=== PATIENT | male | born 1955 | race Caucasian/White ===

== ENCOUNTER 2016-11-24 19:44 | Emergency (ER) | payer MEDICARE ==
[2016-07-31 22:07] VITALS: BMI 28.9
[~2016-11-24 19:44] MED LIST: ALBUTEROL0.63 MG/3 UPD; ASPIRIN325 MG PO; CELEXA10 MG PO; COREG25 MG PO; COREG6.25 MG PO; FLOMAX0.4 MG PO; GEMFIBROZIL600 MG PO; GLUCOPHAGE1000 MG PO; HYDROCHLOROTHIA25 MG PO; ISOSORBIDE DINI30 MG PO; ISOSORBIDE MONO30 M1 PO; LANOXIN250 MCG PO; LORTAB 7.5/5001 TA1 PO; MIRAPEX0.5 MG PO; NEURONTIN 300300 MG PO; NITROSTAT0.4 MG SL; NORCO 7.5/325 T1 TA1 PO; NOVOLIN N100 U/ML SQ; OMEPRAZOLE20 M1 PO; PLAVIX75 MG PO; PRILOSEC20 MG PO; RANEXA500 MG PO; REGLAN10 MG PO; SOMA350 MG PO; VASOTEC10 MG PO; XANAX0.5 MG PO; ZANTAC150 MG PO
[2016-11-24 20:32] LABS: BASOPHILS 0.4 % (0.0-2.0); EOSINOPHILS 3.7 % (0-7); HEMATOCRIT 34.7 % (42.0-54.0); HEMOGLOBIN 11.2 g/dL (13.5-17.5); IMMATURE GRANULOCYTES 0.5 % (0-5); MCH 23.9 pg (26.0-34.0); MCHC 32.3 g/dL (31.0-37.0); MEAN PLATELET VOLUME 10.2 fL (7.4-10.4); NEUTROPHILS 66.4 % (40-80); RBC 4.69 10x6/uL (4.20-6.10); RDW 15.8 % (11.5-14.5); WBC 11.5 10x3/uL (4.8-10.8)
[2016-11-24 20:34] LABS: PLATELET COUNT 179 10x3/uL (130-400)
[2016-11-24 21:03] LABS: ALBUMIN 3.4 g/dL (3.4-5.0); ALKALINE PHOSPHATASE 74 U/L (46-116); ALT (SGPT) 14 U/L (10-68); BILIRUBIN - TOTAL 0.34 mg/dL (0.2-1.3); CALC OSMOLALITY 269 mosm/kg (275-300); CALCIUM 9.7 mg/dL (8.5-10.1); CARBON DIOXIDE 28.3 mmol/L (21.0-32.0); CHLORIDE - SERUM 92 mmol/L (98-107); CREATININE - SERUM 1.6 mg/dL (0.6-1.3); POTASSIUM - SERUM 5.1 mmol/L (3.5-5.1); PROTEIN - SERUM 7.6 g/dL (6.4-8.2); SODIUM 128 mmol/L (136-145); UREA NITROGEN 37 mg/dL (7-18); eGFR NON AFRICAN AMERICAN 47 mL/min (90-120)
[2016-11-24 21:05] LABS: GLUCOSE 179 mg/dL (74-106)
[2016-11-24 21:13] LABS: CHOL - HDL RATIO 2.9 ratio (2.3-4.9); CHOLESTEROL, TOTAL 121 mg/dL (0-200); CKMB 6.3 U/L (0.0-3.6); CREATINE KINASE 256 UL (21-232); HDL CHOLESTEROL 42 mg/dL (32-96); LDL CHOLESTEROL 62 mg/dL (0-100); LDL-HDL RATIO 1.5 ratio (1.5-3.5); PRO BNP 601 pg/mL (0-125); TRIGLYCERIDE 89 mg/dL (30-200); TROPONIN-I 0.043 ng/mL (0.000-0.060)
== END 2016-11-24 23:08 | disposition home or self-care (01) ==
LOC: D.ER 19:44
PROVIDERS: Emergency Medicine
DX: J20.9 Acute bronchitis, unspecified (principal); K21.9 Gastro-esophageal reflux disease without esophagitis; I10 Essential (primary) hypertension; E11.9 Type 2 diabetes mellitus without complications; Z95.5 Presence of coronary angioplasty implant and graft; F17.200 Nicotine dependence, unspecified, uncomplicated

== ENCOUNTER 2016-12-20 13:35 | Outpatient (CLI) | payer MEDICARE ==
[~2016-12-20] VITALS: Ht 180.3 cm; Wt 88.6 kg
[2016-12-20 14:52] VITALS: BP 110/58; Ht 180.3 cm; Wt 88.6 kg
[2016-12-20 14:53] LABS: BASOPHILS 0.3 % (0.0-2.0); EOSINOPHILS 1.8 % (0-7); HEMATOCRIT 35.3 % (42.0-54.0); HEMOGLOBIN 11.3 g/dL (13.5-17.5); IMMATURE GRANULOCYTES 0.6 % (0-5); LYMPHOCYTES 16.3 % (15-50); MCH 23.9 pg (26.0-34.0); MCV 74.8 fL (80.0-100.0); MEAN PLATELET VOLUME 10.7 fL (7.4-10.4); MONOCYTES 7.9 % (2-11); NEUTROPHILS 73.1 % (40-80); PLATELET COUNT 193 10x3/uL (130-400); RBC 4.72 10x6/uL (4.20-6.10); RDW 17.3 % (11.5-14.5); WBC 8.7 10x3/uL (4.8-10.8)
[2016-12-20 14:57] LABS: ANION GAP 15.5 mmol/L (8-16); CARBON DIOXIDE 25.7 mmol/L (21.0-32.0); CREATININE - SERUM 2.1 mg/dL (0.6-1.3); POTASSIUM - SERUM 5.2 mmol/L (3.5-5.1)
[2016-12-20] MEDS ORDERED: MUCINEX1200 MG/BO PO (14:57)
--- NOTE | 2016-12-20 15:00 | NUR ---
1410-TAKEN TO RADIOLOGY FOR CHEST X-RAY, LAB OBTAINED AT THIS TIME. 1435-22G IV STARTED TO RIGHT DORSTAL HAND TIMES ONE ATTEMPT, NORMAL SALINE PLACED ON PUMP @ 200CC PER HR.
[2016-12-20] MEDS ORDERED: TOUJEO SOL300 UNIT/1 SC (15:04)
--- NOTE | 2016-12-20 16:15 | NUR ---
CALL PLACED TO DR MIGUEL, REPORTED BMP RESULTS, DR MIGUEL STATES TO HAVE PATIENT INCREASE TOUJEO TONIGHT TO 35 TO [address] CALL [address] GARCIA'S NURSE BONIFACIO WITH BLOOD SUGAR READINGS TMRW
--- NOTE | 2016-12-20 17:30 | NUR ---
PATIENT'S DAUGHTER ASKS IF PATIENT MAY GO OVER TO THE MEDICAL FLOOR TO VISIT HIS BROTHER WHO IS AN INPATIENT AND IS NOT DOING WELL. PATIENT TRANSPORTED BY WHEELCHAIR BY DAUGHTER TO ROOM 2223 TO VISIT PATIENT'S BROTHER. PATIENT AWAKE, ALERT, WITHOUT COMPLAINTS
--- NOTE | 2016-12-20 18:10 | NUR ---
PATIENT RETURNS TO ROOM BY WHEELCHAIR, TRANSFERS TO BED, RIGHT HAND PIV CONTINUES TO INFUSE NS
--- NOTE | 2016-12-20 19:05 | NUR ---
PATIENT REQUESTS TO GO HOME DUE TO BP 139/81, DESPITE ABOUT 75 CC REMAINING IN LITER OF NS TO BE INFUSED. ORDER STATES THAT PATIENT MAY BE DISCHARGED IF BP OVER 100 SYSTOLIC. RIGHT HAND PIV DC'D WITH TIP INTACT. DC INSTRUCTIONS GIVEN, INCLUDING INSTRUCTIONS TO TAKE 35 TO 40 CC TOUJEO TONIGHT INSTEAD OF USUAL 30 UNITS AND CALL WITH BLOOD SUGAR READINGS TOMORROW TO DR GARCIA'S NURSE. PATIENT AND DAUGHTER STATE UNDERSTANDING. DISCHARGED HOME VIA WHEELCHAIR TO PRIVATE VEHICLE WITH DAUGHTER AND GRANDDAUGHTER
== END 2016-12-20 19:05 | disposition home or self-care (01) ==
LOC: D.OPS 13:35
PROVIDERS: Family Medicine
DX: I95.9 Hypotension, unspecified (principal); R06.02 Shortness of breath

== ENCOUNTER 2017-04-10 12:59 | Inpatient (IN) | payer MEDICARE ==
[~2017-04-10] VITALS: Ht 180.3 cm; Wt 88.5 kg
[~2017-04-10 12:59] MED LIST changes: -ASPIRIN325 MG PO; +ASPIRIN81 MG PO; +MUCINEX1200 MG/BO PO; +TOUJEO SOL300 UNIT/1 SC
[2017-04-10 13:38] LABS: BASOPHILS 0.2 % (0-2); EOSINOPHILS 0.2 % (0-7); HEMATOCRIT 31.5 % (42.0-54.0); IMMATURE GRANULOCYTES 0.4 % (0-5); LYMPHOCYTES 12.2 % (15-50); MCH 23.6 pg (26.0-34.0); MCHC 31.7 g/dL (31.0-37.0); MCV 74.5 fL (80.0-100.0); MEAN PLATELET VOLUME 9.5 fL (7.4-10.4); MONOCYTES 8.4 % (2-11); NEUTROPHILS 78.6 % (40-80); RBC 4.23 10x6/uL (4.20-6.10)
[2017-04-10 13:53] LABS: UDS - AMPHET NEGATIVE QUAL (NEGATIVE); UDS - BARB NEGATIVE QUAL (NEGATIVE); UDS - BENZO POSITIVE QUAL (NEGATIVE); UDS - COCAINE NEGATIVE QUAL (NEGATIVE); UDS - METH NEGATIVE QUAL (NEGATIVE); UDS - OPIATE POSITIVE QUAL (NEGATIVE); UDS - PCP NEGATIVE QUAL (NEGATIVE); UDS - THC NEGATIVE QUAL (NEGATIVE)
[2017-04-10 13:57] LABS: APPEARANCE HAZY (CLEAR); BILIRUBIN NEGATIVE (NEGATIVE); COLOR YELLOW (YELLOW); GLUCOSE 500 mg/dL (NEGATIVE); KETONE NEGATIVE (NEGATIVE); LEUKOCYTE ESTERASE NEGATIVE (NEGATIVE); NITRITE NEGATIVE (NEGATIVE); PROTEIN 3+ mg/dL (NEGATIVE); SPECIFIC GRAVITY 1.015 (1.005-1.020); UROBILINOGEN NORMAL (NORMAL)
[2017-04-10 13:58] LABS: AMORPHOUS SEDIMENT <1+ /lpf (NONE SEEN); BACTERIA MODERATE /hpf (NONE SEEN); EPITHELIAL CELLS 0-5 /hpf (0-5); GRANULAR CAST OCC /lpf (NONE SEEN); MUCUS <1+ /lpf (NONE SEEN); WHITE CELLS - URINE RARE /hpf (0-5)
[2017-04-10 14:01] LABS: PLATELET COUNT 355 10x3/uL (130-400)
[2017-04-10 14:04] LABS: ALBUMIN 2.4 g/dL (3.4-5.0); ANION GAP 15.2 mmol/L (8-16); BILIRUBIN - TOTAL 0.41 mg/dL (0.2-1.3); CALCIUM 8.9 mg/dL (8.5-10.1); CARBON DIOXIDE 25.8 mmol/L (21.0-32.0); CREATININE - SERUM 2.1 mg/dL (0.6-1.3); PROTEIN - SERUM 6.6 g/dL (6.4-8.2)
[2017-04-10 14:17] LABS: PRO BNP 2771 pg/mL (0-125); TROPONIN-I < 0.017 ng/mL (0.000-0.060)
--- NOTE | 2017-04-10 15:53 | NUR ---
ARRIVE TO ROOM VIA WHEELCHAIR ACCOMPANIED BY NEUROPSYCHOLOGY DIRECTOR AND FAMILY. ALERT AND ORIENTED X4. COMPLAINS OF SOB. O2 AT 2L NC. REPORTS GENERALIZED WEAKNESS. URINAL AT BEDSIDE. INITIATE TELEMETRY MONITORING. IV LT UPPER ARM. INITIATE IV FLUIDS ORDERED. SCDs ON. BED LOCKED AND LOW. CALL LIGHT IN REACH. TWO SIDERAILS UP.
[2017-04-10] MEDS ORDERED: GLUCOTROL ER2.5 MG PO (16:05)
[2017-04-10] MEDS ORDERED: AMITRIPTYLINE H50 MG PO (16:06)
[2017-04-10 16:51] VITALS: BP 95/54; BMI 27.3
[2017-04-10 20:00] VITALS: BP 136/369
--- NOTE | 2017-04-10 20:38 | NUR ---
PT WITH MULTIPLE FAMILY IN ROOM. FAMILY REQUESTING HIS PAIN MED/MUSCLE RELAXER AND SOMETHING FOR HIS BEING A SMOKER. MEDICATED WITH NORCO 7.5MG/SOMA 350MG AND APPLIED A TRANSDERMAL NICOTINE 21MG PATCH TO PATIENTS. RIGHT UPPER BACK.
--- NOTE | 2017-04-10 21:24 | NUR ---
DECREASED IVF TO 30ML/HR PER NEW ORDER OF DR GARCIA.
[2017-04-11] VITALS: BP 101/56
--- NOTE | 2017-04-11 01:28 | NUR ---
SPOKE WITH LAB, URINE WAS COLLECTED IN ER SO THEY CAN RUN CULTURE OFF OF THAT SPECIMEN.
--- NOTE | 2017-04-11 03:22 | NUR ---
PT RESTING IN BED WITH NO DISTRESS. DAUGHTER AT BEDSIDE. IVF INFUSING. CPOC. CALL LIGHT IN REACH.
[2017-04-11 04:00] VITALS: BP 117/68
[2017-04-11 05:44] LABS: BASOPHILS 0.3 % (0-2); EOSINOPHILS 0.4 % (0-7); HEMATOCRIT 28.9 % (42.0-54.0); IMMATURE GRANULOCYTES 0.4 % (0-5); LYMPHOCYTES 15.5 % (15-50); MCHC 31.1 g/dL (31.0-37.0); MCV 73.9 fL (80.0-100.0); MEAN PLATELET VOLUME 9.7 fL (7.4-10.4); MONOCYTES 11.7 % (2-11); NEUTROPHILS 71.7 % (40-80); PLATELET COUNT 363 10x3/uL (130-400); RBC 3.91 10x6/uL (4.20-6.10); RDW 15.9 % (11.5-14.5); WBC 9.4 10x3/uL (4.8-10.8)
[2017-04-11 06:00] LABS: ANION GAP 15.5 mmol/L (8-16); CALCIUM 9.2 mg/dL (8.5-10.1); CARBON DIOXIDE 25.8 mmol/L (21.0-32.0); CREATININE - SERUM 2.2 mg/dL (0.6-1.3); POTASSIUM - SERUM 4.3 mmol/L (3.5-5.1)
[2017-04-11 08:13] VITALS: BP 140/69
[2017-04-11 08:36] VITALS: Ht 180.3 cm; Wt 88.5 kg
--- NOTE | 2017-04-11 13:41 | NUR ---
ALERT AND ORIENTED WITH OCCASIONAL CONFUSION. FAMILY AT BEDSIDE. WAITING FOR ECHO. ASKING ABOUT A BRAIN SCAN. INFORM FAMILY NO ORDER HAS BEEN PLACED FOR BRAIN SCAN. COMPLAINS OF LT SHOULDER PAIN. APPLY WARM BLANKET TO SHOULDER. INITIATE PAIN MANAGEMENT ORDERED. SINUS RHTHYM 90bpm ON TELEMETRY. CONTINUE PLAN OF CARE. BED LOCKED AND LOW. CALL LIGHT IN REACH. TWO SIDERAILS UP.
[2017-04-11 19:45] VITALS: BP 112/61
--- NOTE | 2017-04-11 20:53 | NUR ---
HS MEDS GIVEN WITH FRESH ICE WATER. BS 281, COVERED PER S/S. PT DENIES PAIN OR NEEDS, FAMILY AT BED SIDE, BED LOW, CL IN REACH.
--- NOTE | 2017-04-12 01:05 | NUR ---
NORCO 1 TAB GIVEN FOR C/O PAIN, DAUGHTER AT BED SIDE.
[2017-04-12 01:51] VITALS: BP 136/78
--- NOTE | 2017-04-12 03:18 | NUR ---
RESTING WITH EYES CLOSED, RESPERATIONS EVEN, NO S/S DISTRESS NOTED.
[2017-04-12 05:48] VITALS: BP 118/58
[2017-04-12 08:19] VITALS: BP 140/59
--- NOTE | 2017-04-12 08:35 | HP ---
PATIENT: RIKI FRANCIS MEDICAL RECORD: [id number] ACCOUNT: [id number] LOCATION:[facility].2113 : 53 ADMISSION DATE: 04/10/17 HISTORY AND PHYSICAL EXAMINATION REASON FOR ADMISSION: Shortness of breath and confusion. HISTORY OF PRESENT ILLNESS: The patient is a 61-year-old male with history of ischemic cardiomyopathy with last EF at this hospital in July 2016 of 15% to 20% with global hypokinesis. The patient has been seen by Dr. Quintero at [facility]. He had recently begun taking Neurontin for diabetic neuropathy. His daughter states that he has been tired having intermittent cough for some time. His cough has been productive of only whitish sputum, nothing out of color. He has not had fever. His daughter states he became more confused the last 48 hours and then went to the Emergency Room for that reason. He has also had mild short of breath on exertion, but no chest pain. In the ED, his sat was 94% on room air. He is able to answer questions. Dr. Burton evaluated the patient and notes the sodium was low at 125 and creatinine was up to 2.1. Chest x-ray showed mild interstitial edema. He is admitted for these reasons. PAST MEDICAL HISTORY: Ischemic cardiomyopathy with AED placed. He states it has never fired. History of remote myocardial infarction, chronic angina, gastric ulcer, blood transfusion in 1991, diabetes mellitus, chronic lumbago, lumbar disc disease with lumbar discectomy, chronic pain syndrome, hyperlipidemia, hypertension and chronic renal insufficiency. PAST SURGICAL HISTORY: Carpal tunnel release, bilateral cataract surgery in 1999, 7 lumbar back procedures, AED 2013, multiple angiograms, has had peripheral vascular disease with stents in both legs, multiple coronary stents. FAMILY HISTORY: Father at 69 from CAD and kidney failure. Mother at 58, CAD and heart issues. All of his brothers and sisters have had a premature heart disease. SOCIAL HISTORY: He is about 2 years ago. His of diabetic ____ kidney disease. He continues to smoke, unfortunately a half a pack to a pack of cigarettes a day. HOME MEDICATIONS: Plavix 75 mg a day, enteric-coated aspirin 325 mg a day. Vasotec 10 mg b.i.d., digoxin 0.25 mg daily, Coreg 25 mg q.12 hours, Reglan 10 mg b.i.d., Xanax 0.5 mg t.i.d. p.r.n. anxiety, metformin 1000 mg b.i.d., glipizide 5 mg daily, omeprazole 20 mg a day, Bonaparte 7.5/325 one q. 6 p.r.n. pain, potassium chloride 10 mEq b.i.d., Mirapex 1 mg b.i.d., Lasix 20 mg one-half tab b.i.d., Toujeo 35 units subQ daily, gabapentin 300 mg t.i.d., gemfibrozil 600 mg b.i.d., Isordil 60 mg b.i.d., Soma 350 mg q. 6 hours p.r.n. muscle spasm, Elavil 50 mg at h.s. p.r.n. sleep, sliding scale insulin, insulin sensitive, regular. ALLERGIES: None. REVIEW OF SYSTEMS: GENERAL: Chronically fatigue. He has had weight loss over the last year since his , but has stabilized. Denies fever. HEENT: No recent visual change, sinus congestion, or sore throat. Some hearing HISTORY AND PHYSICAL [id number] RIKI FRANCIS difficulty. RESPIRATORY: Mild shortness of breath on exertion. He has had a dry cough for several months. Occasionally, he will produce some whitish phlegm. Denies hemoptysis. He continues to smoke. CARDIAC: No exertional chest pain, mild DOAN. No increasing peripheral edema. No recent chest pain. GENITOURINARY: Nocturia nightly. No dysuria. MUSCULOSKELETAL: Has chronic cervical and lumbar back pain that requires chronic pain medications. He denies sciatica, currently. ENDOCRINE: Denies polyuria, polydipsia, heat or cold intolerance. NEUROLOGIC: No history of stroke, TIA, vascular headaches or seizures. PSYCHIATRIC: Admits to chronically depressed mood since his 's . He has trouble with insomnia, improved on Elavil. PHYSICAL EXAMINATION: VITAL SIGNS: Temperature is 98.2 Fahrenheit orally, pulse 86 and regular, respirations were 20 and nonlabored, blood pressure was 114/52 with a sat of 94% on room air. GENERAL: The patient is alert and oriented at this time. He is not confused. HEENT: Eyes are clear. Oropharynx unremarkable except for poor dentition. NECK: No bruits, JVD or masses. CHEST: He has fine crackles in the bases bilaterally. HEART: Regular rate with a faint I/ systolic ejection murmur. ABDOMEN: Soft. GENITOURINARY: Deferred. EXTREMITIES: No CC&E. SKIN: Does show a hypertrophied callus on his left medial proximal MTP joint. IMAGING: Chest x-ray shows mild pulmonary edema. Cardiac pacing device in place in the right atrium and right ventricle, leads are noted. Cardiac silhouette is not enlarged. LABORATORY DATA: His white count is 10,000, H&H is 10 and 31.5 respectively, platelet count is 355,000. ABG on room air showed a pH of 7.44, CO2 of 33, pO2 of 57. Sodium is 125, potassium is 5, BUN and creatinine is 54 and 2.1 reflecting his chronic renal insufficiency. Cardiac enzymes are negative. ProBNP is 2771. Urine drug screen is positive for opiates and benzodiazepines, which are prescribed medications for him. Digoxin level is low at 0.07. UA 3+ protein, 2+ blood, 5-10 red cells. ASSESSMENT: 1. [id number]-[id number] systolic congestive heart failure. 2. Congestive cardiomyopathy. 3. Hyponatremia, possibly diuretic induced. 4. Proteinuria. 5. Hematuria. 6. Chronic renal insufficiency. 7. Diabetes mellitus. 8. Chronic pain syndrome. 9. Diabetic neuropathy, depression, nicotine dependence, chronic obstructive pulmonary disease, significant coronary artery disease with multiple stent procedures, peripheral vascular disease with multiple stent procedures. PLAN: The patient will be admitted on fluid restriction. His creatinine appears at baseline. We will discontinue IV fluid ordered in the ED and proceed HISTORY AND PHYSICAL [id number] RIKI FRANCIS with gentle diuresis, pending his sodium response. We will obtain echocardiogram to assess his current ejection fraction, have cardiology consult, Dr. Conway. TRANSINT:[id number] Voice Confirmation ID: [id number] DOCUMENT ID: [id number] GOPI GARCIA MD at 0835 CC: [id number] DICTATION DATE: 04/10/17 183 BEAD TRIMMER: 04/10/17 2343 ADM IN [address] [id number] [place] [address]
[2017-04-12 10:14] LABS: ANION GAP 13.5 mmol/L (8-16); CALCIUM 8.8 mg/dL (8.5-10.1); CARBON DIOXIDE 25.5 mmol/L (21.0-32.0)
[2017-04-12 11:52] VITALS: BP 124/59
--- NOTE | 2017-04-12 13:23 | NUR ---
ALERT AND ORIENTED X4. RESTING IN BED. FAMILY AT BEDSIDE. TEARFUL DUE TO RECIEVING BAD NEWS FROM DOCTOR PER ARIA FRANCIS (PATIENT'S DAUGHTER). TALKING IN ROOM ABOUT HOSPICE CARE WHEN DISCHARGED. DENIES ANY NEEDS. CALLS FOR ASSISTANCE IF NEEDED. BED LOCKED AND LOW. CALL LIGHT IN REACH. TWO SIDERAILS UP. SINUS RHTHYM 85bpm ON TELEMETRY.
--- NOTE | 2017-04-12 13:39 | CN ---
PATIENT NAME:RIKI FRANCIS MEDICAL RECORD: [id number] : 51 LOCATION:D. D.2113 ADMIT DATE: 04/10/17 ACCOUNT: [id number] CONSULTING PHYSICIAN: SHIRLEY HERNÁNDEZ MD REFERRING PHYSICIAN: GOPI GARCIA MD DATE OF CONSULTATION: 04/11/2017 HISTORY OF PRESENT ILLNESS: A 61-year-old gentleman with longstanding history of coronary artery disease, most recently with intervention in November of this year. He has severe diffuse disease that was most not amenable to intervention. He has severe ischemic cardiomyopathy, EF 15% to 20% post-ICD placement. Really more of a general downward course. Daughter reports confusion has been worse as of late ____ his is not here. He was found to be hyponatremic. We are asked to see him concerning his cardiovascular status. PAST MEDICAL HISTORY: Includes: 1. A history of coronary artery disease, status post intervention. 2. Chronic renal insufficiency. 3. Diabetes mellitus. 4. Dyslipidemia. 5. Depression. 6. Anxiety. MEDICATIONS: Typically include Soma 700 mg p.o. q.i.d. p.r.n., Plavix 75 every day, Lopid 600 b.i.d., Imdur 60 every day, Enalapril 10 b.i.d., carvedilol 25 b.i.d., aspirin 81 every day, Celexa 20 every day, [place] 7.5/325 one q.6 hours p.r.n., Neurontin 300 mg t.i.d., amitriptyline 50 q.h.s., HCTZ 25 every day, Reglan 10 b.i.d., Zantac 150 h.s., glipizide 2.5 every day, insulin 30 units daily. SOCIAL HISTORY: Currently, lives by himself. He does have good family support with his daughter. He has no set exercise program. REVIEW OF SYSTEMS: The patient reports easy bruising but reports no swollen glands. The patient reports no fever, no night sweats, no significant weight gain, no significant weight loss. No significant exercise tolerance. The patient reports no dry eyes, no irritation, no vision change. Patient reports no difficulty hearing and no ear pain. Patient reports no frequent nose bleeds or nose and sinus problems. Patient reports on arm pain on exertion. No shortness of breath while lying down. No history of heart murmur. Patient reports no cough, no wheezing or coughing up blood. Patient reports no abdominal pain, no vomiting. Normal appetite. No diarrhea and not vomiting blood. No nausea and no constipation. Patient reports no incontinence. No difficulty urinating. No hematuria. No increased frequency. Patient reports no muscle aches. No weakness, no arthralgias, no back pain. No swelling of the extremities. Patient reports no abnormal mole, no jaundice, no rashes. Reports no loss of consciousness. No weakness and no numbness. No seizures, dizziness, or headaches. The patient reports no depression, no sleep disturbance, feeling safe in a relationship and no alcohol abuse. Patient reports on fatigue. Reports no runny nose or sinus pressure. No itching, no hives, and no frequent sneezing. PHYSICAL EXAMINATION: GENERAL: Pleasant gentleman, does recognize me, recounts he is in the hospital. VITAL SIGNS: Blood pressure 140/69, pulse 93 and regular. CONSULT REPORT [id number] RIKI FRANCIS HEENT: Normocephalic, atraumatic. NECK: No bruits noted. HEART: Regular, II/ systolic ejection murmur, probable summation gallop. LUNGS: Decreased air excursion. ABDOMEN: Soft, nontender. EXTREMITIES: Pulses are decreased 1+. No edema is noted. IMPRESSION: Worsening confusion, hyponatremia. Confusion may at this point be multifactorial given age and other multiple risk factors. Discussed this in detail with his daughter. Correct electrolytes as possible. Further recommendations based on clinical course. Though I think at this point mental status may be on slow ____. TRANSINT:[id number] Voice Confirmation ID: [id number] DOCUMENT ID: [id number] SHIRLEY HERNÁNDEZ MD at 1339 CC: [id number] DICTATION DATE: 04/11/17930 REMEDIATION TECHNICIAN: 04/11/17 1124 ADM IN [id number] [place] [address]
[2017-04-12 16:05] VITALS: BP 141/78
--- NOTE | 2017-04-12 16:55 | NUR ---
ALERT AND ORIENTED X4. RESTING IN BED. FAMILY AT BEDSIDE. [facility] STILL HAS NOT ARRIVED. CALLED OFFICE REGARDING MEDICATIONS TO BED CONTINUED. ALL HOME MEDICATIONS CONTINUED PER VIA TELEPHONE. CHRISTINE ENGRAVING SUPERVISOR CALLED [facility] FOR ESTIMATED TIME OF ARRIVAL. INFORMATION PACKET FAXED TO HOSPICE OFFICE. HOSPICE NURSE LEAVING [place] ON THE WAY. CONTINUE PLAN OF CARE AND SAFETY PRECAUTION.
--- NOTE | 2017-04-12 17:38 | NUR ---
Patient Name: RIKI FRANCIS Admission Status: ER Accout number: [id number] Admission Date: 04-10-2017 : 1955 Admission Diagnosis:CHEST PAIN, UNSPECIFIED Attending: ALMA Current LOS: 2 Anticipated DC Date: 04-12-2017 Planned Disposition: Home with Hospice Primary Insurance: [facility] PF PLANNED EXTERNAL PROVIDER: [facility] Discharge Planning Comments: * Is the patient Alert and Oriented? Yes 0 * How many steps to enter\exit or inside your home? 2-3 0 * PCP DR. GARCIA 0 * Pharmacy [facility] 0 * Preadmission Environment Home Alone 0 * ADLs Independent 0 * Equipment [facility] 0 * Other Equipment NO MEDICAL EQUIPMENT PROVIDER PREFERENCE 0 * List name and contact numbers for known caregivers / representatives who currently or will assist patient after discharge: BRYAN MORRISON DTR, 0 * Community resources currently utilized None 0 * Please name any agencies selected above. NONE 0 * Additional services required to return to the preadmission environment? Yes * Can the patient safely return to the preadmission environment? Yes 0 * Has this patient been hospitalized within the prior 30 days at any hospital? No 0 CM RECEIVED DISCHARGE / HOME HOSPICE ORDER, MET WITH PT AND FAMILY IN ROOM TO DISCUSS DISCHARGE PLANNING AND NEEDS. PT REPORTS LIVING AT HOME INDEPENDENTLY AND ALONE. PT HAS CANE AND WALKER WITH NO MEDICAL EQUIPMENT PROVIDER AND NO OUTSIDE SERVICES ASSISTING IN THE HOME. CM DISCUSSED AVAILABILITY OF HOME HEALTH, REHAB SERVICES AND MEDICAL EQUIPMENT. PT WOULD LIKE HOSPICE WITH [facility]. PT'S DAUGHTER REPORTS THEY CALLED AND HAVE APPOINTMENT FOR HOSPICE TO MEET WITH PT AND FAMILY IN ROOM AT 4PM TODAY. PT REPORTS HE WANTS TO GO HOME TODAY WITH HOSPICE. PT'S DAUGHTER REPORTS PT TO HAVE FAMILY ASSISTANCE AT HOME NEEDED, REPORTS FAMILY WILL PICK PT UP FOR DISCHARGE HOME TODAY. IMPORTANT MESSAGE FROM MEDICARE PROVIDED AND EXPLAINED. AT ABOUT 4:45 PM, CM ADVISED BY BEDSIDE NURSE THAT HOSPICE HAS NOT ARRIVED. CM CALLED HOSPICE [facility], , SPOKE TO ANSWERING SERVICE WHO WILL CONTACT TREATMENT COORDINATOR NURSE TO CALL CM. CM RECEIVED RETURN CALL FROM DAMAR[facility] WHO REPORTS SHE THOUGHT SHE WAS TO MEET WITH PT AND FAMILY AFTER 4PM AND WILL BE TO HOSPITAL IN ABOUT ONE HOUR SHE IS ON THE WAY FROM [place]. CM ADVISED OF PT AND FAMILY WANTING DISCHARGE HOME TONIGHT. CM FAXED [facility]ERRAL TO [facility], LEFT PACKET FOR [facility] AT DESK, ADVISED PT, FAMILY AND BEDSIDE NURSE. Label Stitcher: Marcos Gracia
--- NOTE | 2017-04-12 21:09 | NUR ---
PT AWAKE, ALERT, ORIENTED X 2, CONFUSED TO TIME AND PLACE. PT HAS FAMILY AT BEDSIDE, IS CONVERSANT, PLEASANT, C/O GENERALIZED PAIN AND NOT FEELING GOOD. FAMILY IS VERY UPSET WITH THE WAY THE NURSE FROM [facility] TREATED THEM TODAY. SHE REFUSED TO ADMIT PT, AND FAMILY IS ASKING THAT HE BE ABLE TO GO HOME EARLY POSSIBLE IN THE AM, BUT THE NURSE TOLD THEM IT WOULD NOT BE UNTIL 9 AT THE EARLIEST R/T [facility] NOT BEING OPEN UNTIL 9 IN THE AM. BRYAN, DAUGHTER, IS STAYING WITH PT TONIGHT, AND STATES HE HAS BOUTS OF CONFUSION, ESPECIALLY AT NIGHT. PT IS CURRENLTY RESTING COMFORTABLY AT THIS TIME, AND IS IN NO ACUTE DISTRESS. CONTINUE TO MONITOR CLOSELY. BED LOW, CALL LIGHT IN REACH, SIDE RAILS X 2, HOB 20 DEGREES, BED ALARM ON.
[2017-04-12 21:21] VITALS: BP 112/67
[2017-04-13 01:26] VITALS: BP 129/62
--- NOTE | 2017-04-13 02:38 | NUR ---
PT RESTING COMFORTABLY, EYES CLOSED, RESPIRATIONS EVEN AND UNLABORED. DAUGHTER, BRYAN, AT BEDSIDE. CONTINUE TO MONITOR CLOSELY. BED LOW, CALL LIGHT IN REACH, SIDE RAILS X 2, HOB 20 DEGREES.
[2017-04-13 04:59] VITALS: BP 130/58
[2017-04-13 05:22] LABS: ANION GAP 14.9 mmol/L (8-16); CALCIUM 8.5 mg/dL (8.5-10.1); CARBON DIOXIDE 25.2 mmol/L (21.0-32.0); CREATININE - SERUM 2.1 mg/dL (0.6-1.3); POTASSIUM - SERUM 5.1 mmol/L (3.5-5.1)
--- NOTE | 2017-04-13 06:41 | NUR ---
PT LYING IN BED, EYES CLOSED, RESPIRATIONS EVEN AND UNLABORED. PT EASILY ROUSABLE TO VERBAL STIMULI, DENIES ANY NEEDS. CONTINUE TO MONITOR CLOSELY.
[2017-04-13 08:00] VITALS: BP 124/70
--- NOTE | 2017-04-13 08:01 | NUR ---
AM ROUNDS - PT APPEARS TO BE SLEEPING WITH EQUAL AND NON LABORED BREATHS. DAUGHTER, BRYAN, AT BEDSIDE. MONITOR SHOWING SR, HR 89. 2L O2 VIA NC. LEFT UPPER ARM IV, SL. PT IS A DNR. PT IS TO BE ON HOSPICE CARE WITH [facility]. PT IS A BSFS AC AND HS. WILL CONTINUE TO MONITOR.
--- NOTE | 2017-04-13 09:55 | NUR ---
Patient Name: RIKI FRANCIS Encounter No: [id number] : 1955 Primary Insurance: [facility] ADVANTAGE [facility] PFFS Anticipated DC Date: 04-12-2017 Planned Disposition: Home with Hospice External Planned Provider: [facility] DCP follow-up note: CM SPOKE TO PT AND DAUGHTER UPON ARRIVAL AT 0800; DAUGHTER REPORTS THAT HOSPICE TOLD THEM LAST NIGHT THAT OXYGEN COULD NOT BE DELIVERED LATE FOR PT TO GO HOME LAST NIGHT; PT AND FAMILY ARE CONSIDERING USING ANOTHER HOSPICE AGENCY. CM EXPLAINED THERE ARE OTHER AGENCIES, OFFERED TO PROVIDE LISTING AND CONTACT ANOTHER AGENCY OF PT/FAMILY CHOICE. DAUGHTER REPORTS HAVING FAMILY MEMBER FAMILIAR WITH OTHER AGENCIES AND NEEDING NO LISTING, THEY WILL CONTINUE TO TRY TO USE [facility] AT THIS TIME. FAMILY AND PT ARE UPSET, PT WANTING TO DISCHARGE HOME SOON POSSIBLE. PT'S DAUGHTER HAS SPOKEN TO HOSPICE THIS MORNING AND THEY ARE NOW SAYING THAT PT'S FAMILY WILL HAVE TO ACCEPT DELIVERY OF EQUIPMENT AT HOME AND BRING OXYGEN TO HOSPITAL THEMSELVES FOR PT TO GO HOME. ANDRAE CALLED ROCHELLE MONGE OF [facility] WHO WILL FACILITATE GETTING PT'S NEEDS MET FOR DISCHARGE SOON POSSIBLE TODAY. CM FAXED DISCHARGE INFORMATION TO [facility], . FOR DISCHARGE, NOTIFY [facility] WHEN PT IS LEAVING TO GO HOME; [phone]. Marcos Gracia, CASE MANAGEMENT
--- NOTE | 2017-04-13 11:31 | EC ---
PATIENT:RIKI FRANCIS DATE OF SERVICE: 04/10/17 SEX: M MEDICAL RECORD: [id number] DATE OF : [birth year] LOCATION:D.M2 D.211 AGE OF PATIENT: 61 ADMISSION DATE: 04/10/17 REFERRING PHYSICIAN: INTERPRETING PHYSICIAN: SANDHYA CARPENTER MD ECHOCARDIOGRAM REPORT ECHO CHARGES 4 ECHO COMPLETE CLINICAL DIAGNOSIS: CHF ECHOCARDIOGRAPHIC MEASUREMENTS (adult normal given) AC root (d.<3.7cm) 3.6 LV Septum d (<1.2 cm> 1.6 Valve Excursion 2.2 LV Septum (systole) 2.4 Left Atria (s.<4.0cm> 4.0 LVPW d(<1.2cm) 1.5 RV (d.<2.3cm) 3.1 LVPW (sytole) 1.6 LV diastole(<5.6CM) 5.4 MV E-F(>70mm/sec) LV systole 3.7 LVOT Diameter 2.2 MV exc.(>10mm) Est.ejection fraction (50-75%) Pericardial Effusion N DOPPLER: LVIT A 139 E 107 LA RVSP 38.0 LVOT 84.0 AOP1/2T Asc. Ao 161 RVOT 68.0 RA PA 81.0 AV Gradient Peak 10.3 AV Mean 5.4 AV Area 1.9 MV Gradient Peak 11.0 MV Mean 2.7 MV Area COMMENTS: Human Resources Trainer: Malvin AVENDAÑOOE Cable Mock Up Assembler:1 Dr. Carpenter TAPE# PACS DATE OF SERVICE: 04/11/2017 Echocardiogram FINDINGS: 1. Left ventricle chamber size is within normal limits. Left ventricular systolic function is mildly reduced, overall ejection fraction estimated at 40%. 2. Left atrium is upper limits of normal at 4.0 cm. Right atrium and right ventricle chamber sizes are mildly dilated. 3. Valvular structures have normal structure and motion. ECHOCARDIOGRAM REPORT [id number] RIKI FRANCIS 4. Doppler interrogation reveals mild tricuspid regurgitation, no other valvular insufficiency or stenosis. Pulmonary systolic pressure is normal at 38 mmHg. 5. No evidence of pericardial effusion or left ventricular thrombus. TRANSINT:[id number] Voice Confirmation ID: [id number] DOCUMENT ID: [id number] SANDHYA CARPENTER MD at 1134 CC: [id number] DICTATION DATE: 04/12/17 1243 BUSINESS CHANGE MANAGER: 04/12/17 1632 ADM IN [facility] [address] [facility]
--- NOTE | 2017-04-13 11:33 | NUR ---
D/C - GAVE WRITTEN AND VERBAL D/C INSRUCTIONS TO PT AND FAMILY MEMBERS. IV TAKEN OUT OF RIGHT AC, CATH TIP INTACT, PT TOLERATED WELL. PT LEFT FLOOR VIA WHEEL CHAIR WITH VOLUNTEER AND FAMILY. WILL D/C
== END 2017-04-13 11:39 | disposition home health service (06) | DRG 291 ==
LOC: D.ER 12:59 → D.M2 15:15
PROVIDERS: Emergency Medicine; Nurse Practitioner Acute Care; ADMIT Family Medicine
DX: I13.0 Hypertensive heart and chronic kidney disease with heart failure and stage 1 through stage 4 chronic kidney disease, or unspecified chronic kidney disease (principal); I50.23 Acute on chronic systolic (congestive) heart failure; E87.1 Hypo-osmolality and hyponatremia; N18.9 Chronic kidney disease, unspecified; E11.22 Type 2 diabetes mellitus with diabetic chronic kidney disease; R41.0 Disorientation, unspecified; E11.40 Type 2 diabetes mellitus with diabetic neuropathy, unspecified; E78.5 Hyperlipidemia, unspecified; I25.5 Ischemic cardiomyopathy; Z66 Do not resuscitate; F17.200 Nicotine dependence, unspecified, uncomplicated; G89.4 Chronic pain syndrome; F32.9 Major depressive disorder, single episode, unspecified; F41.9 Anxiety disorder, unspecified